=== PATIENT | male | born 1945 | race Caucasian/White ===

== ENCOUNTER 2024-04-05 10:16 | Emergency (ER) | payer MEDICARE, BC | END 2024-04-05 12:07 | disposition home or self-care (01) | LOC: JP.ED 10:16 | DX: M54.50 Low back pain, unspecified (principal); Z88.8 Allergy status to other drugs, medicaments and biological substances; Z79.84 Long term (current) use of oral hypoglycemic drugs; Z79.82 Long term (current) use of aspirin; Z79.899 Other long term (current) drug therapy | CPT/HCPCS: 72100; 72100-26; 99283 ==

== ENCOUNTER 2024-04-11 09:54 | Emergency (ER) | payer MEDICARE, BC | END 2024-04-11 11:02 | disposition home or self-care (01) | LOC: JP.ED 09:54 | DX: M54.50 Low back pain, unspecified (principal); Z79.899 Other long term (current) drug therapy; Z79.84 Long term (current) use of oral hypoglycemic drugs; Z79.82 Long term (current) use of aspirin; Z88.8 Allergy status to other drugs, medicaments and biological substances; Z91.018 Allergy to other foods | CPT/HCPCS: 99283 ==